=== PATIENT | female | born 1995 | race Caucasian/White ===

== ENCOUNTER 2017-05-26 22:54 | Emergency (ER) | payer OTHER ==
[2017-05-26 23:06] VITALS: BP 126/90; O2SAT 99; BMI 21.1
--- NOTE | 2017-05-26 23:32 | ED PDOC ---
Arrival/HPI - General Chief Complaint: Dizziness/Lightheaded Time Seen by Provider: 05/26/17 23:16 Historian: Patient - History of Present Illness Narrative History of Present Illness (Text): 05/26/17 23:28 Donya Almaguer is a 21 year old female, whose past medical history includes migraines and asthma, who presents to the Emergency department complaining of dizziness and light-headedness since this afternoon. Patient describes dizziness as room-spinning and denies any loss of consciousness. Patient also reports a headache, which she states is consistent with previous migraines. Patient denies any fever, chills, chest pain, shortness of breath, nausea, vomiting, diarrhea, urinary symptoms, back pain, neck pain, or any other complaints. Time/Duration: Other (today) Symptom Onset: Gradual Symptom Course: Unchanged Activities at Onset: Rest, Light Context: Home Past Medical History - Provider Review Nursing Documentation Reviewed: Yes - Cardiac Hx Cardiac Disorders: No - Pulmonary Hx Asthma: Yes - Neurological Hx Vertigo: Yes - HEENT Hx HEENT Disorder: No - Renal Hx Renal Disorder: No - Endocrine/Metabolic Hx Endocrine Disorders: No - Hematological/Oncological Hx Blood Disorders: No - Integumentary Hx Dermatological Disorder: No - Musculoskeletal/Rheumatological Hx Musculoskeletal Disorders: No - Gastrointestinal Hx Gastrointestinal Disorders: No - Genitourinary/Gynecological Hx Genitourinary Disorders: No - Psychiatric Hx Psychophysiologic Disorder: No Hx Substance Use: No - Surgical History Hx Section: Yes Family/Social History - Physician Review Nursing Documentation Reviewed: Yes Family/Social History: Unknown Family HX Smoking Status: Never Smoked Hx Alcohol Use: Yes Hx Substance Use: No Allergies/Home Meds Allergies/Adverse Reactions: Allergies No Known Allergies Allergy (Verified 11/02/16 16:02) Home Medications: Home Meds Medication Instructions Recorded Confirmed Albuterol 0.083% [Albuterol 0.083% 1 vial IH PRN PRN 11/02/16 11/02/16 Inhal Katia (2.5 mg/3 ml) UD] Review of Systems - Physician Review All systems were reviewed & negative as marked: Yes - Review of Systems Constitutional: Normal. absent: Fevers Eyes: Normal ENT: Normal Respiratory: Normal. absent: SOB, Cough Cardiovascular: Normal. absent: Chest Pain, Syncope Gastrointestinal: Normal. absent: Abdominal Pain, Diarrhea, Nausea, Vomiting Genitourinary Female: Normal. absent: Dysuria, Frequency, Hematuria, Urine Output Changes Musculoskeletal: Normal. absent: Back Pain, Neck Pain Skin: Normal. absent: Rash Neurological: Headache, Dizziness, Other (+light-headedness) Endocrine: Normal Hemo/Lymphatic: Normal Psychiatric: Normal Physical Exam Vital Signs Reviewed: Yes Vital Signs Temp Pulse Resp BP Pulse Ox 05/27/17 02:26 18 99 05/27/17 01:51 98.0 F 81 18 99 05/26/17 23:04 98.3 F 85 16 126/90 99 Temperature: Afebrile Blood Pressure: Normal Pulse: Regular Respiratory Rate: Normal Appearance: Positive for: Well-Appearing, Non-Toxic, Comfortable Pain Distress: None Mental Status: Positive for: Alert and Oriented X 3 - Systems Exam Head: Present: Atraumatic, Normocephalic Pupils: Present: PERRL Extroacular Muscles: Present: EOMI Conjunctiva: Present: Normal Ears: Present: Normal, NORMAL TM, Normal Canal. No: Erythema, TM Bulging, Fluid , TM Perf Mouth: Present: Moist Mucous Membranes Pharnyx: Present: Normal. No: ERYTHEMA, EXUDATE, TONSILS ENLARGED, Peritonsilar Swelling, Uvular Deviation, Muffled/Hoarse Voice, Strider, Soft Palate/Uvular Edema Nose (External): Present: Atraumatic Nose (Internal): Present: Normal Inspection Neck: Present: Normal Range of Motion Respiratory/Chest: Present: Clear to Auscultation, Good Air Exchange. No: Respiratory Distress, Accessory Muscle Use Cardiovascular: Present: Regular Rate and Rhythm, Normal S1, S2. No: Murmurs Abdomen: Present: Normal Bowel Sounds. No: Tenderness, Distention, Peritoneal Signs Back: Present: Normal Inspection Upper Extremity: Present: Normal Inspection. No: Cyanosis, Edema Lower Extremity: Present: Normal Inspection. No: Edema Neurological: Present: GCS=15, CN II-XII Intact, Speech Normal Skin: Present: Warm, Dry, Normal Color. No: Rashes Psychiatric: Present: Alert, Oriented x 3, Normal Insight, Normal Concentration Medical Decision Making ED Course and Treatment: 05/26/17 23:28 Impression: 21 year old female complaining of dizziness, light-headedness, and headache. Differential Diagnosis include but are not limited to: migraine vs. vertigo Plan: -- CT Head w/o contrast -- EKG -- Labs, troponin -- IV fluids -- Reassess and disposition Prior Visits: Notes and results from previous visits were reviewed. On 11/02/2016, pt was seen in the Emergency department for shortness of breath. Pt was d/c home. Progress Notes: Reviewed EKG, NSR at [address]-segment elevations or depressions, no T-wave inversions, normal intervals. 05/27/17 02:05 Reviewed radiology, CT Head shows: No acute findings. 05/27/17 02:08 On re-evaluation, the patient feels better and is in no acute distress. I have discussed the results and plan with the patient, who expresses understanding. Patient in agreement with plan to discharged home. Patient is stable for discharge. Patient was instructed to follow up with physician/clinic in 1-2 days or return if symptoms worsen or new concerning symptoms arise. Re-evaluation Time: 02:08 Reassessment Condition: Re-examined, Improved - Lab Interpretations Lab Results: 05/27/17 00:03 05/27/17 01:09 Lab Results 05/27/17 01:09: Sodium 140, Potassium 3.5 L, Chloride 103, Carbon Dioxide 27, Anion Gap 14, BUN 7, Creatinine 0.9, Est GFR ( Amer) > 60, Est GFR (Non- Af Amer) > 60, Random Glucose 133 H, Calcium 9.1, Total Bilirubin 0.4, AST 48 H , ALT 33, Alkaline Phosphatase 70, Troponin I < 0.01, Total Protein 7.7, Albumin 4.1, Globulin 3.6, Albumin/Globulin Ratio 1.1 05/27/17 00:03: WBC 7.0, RBC 4.28, Hgb 12.7, Hct 38.1, MCV 89.0, MCH 29.7, MCHC 33.3, RDW 12.6, Plt Count 338, MPV 9.4, Gran % 57.0, Lymph % (Auto) 32.8, [place] % (Auto) 7.7 H, Eos % (Auto) 2.4, Baso % (Auto) 0.1, Gran # 4.00, Lymph # 2.3, [place] # 0.5, Eos # 0.2, Baso # 0.01 I have reviewed the lab results: Yes - RAD Interpretation Narrative RAD Interpretations (Text): CT Head shows: Brain: No significant white matter disease. No hemorrhage. No edema. Ventricles: Unremarkable. No ventriculomegaly. Bones/joints: Unremarkable. No acute fracture. Soft tissues: Unremarkable. Sinuses: Unremarkable as visualized. No acute sinusitis. Mastoid air cells: Unremarkable as visualized. No mastoid effusion. IMPRESSION: No acute findings. Radiology Orders: 05/27/17 00:19 HEAD W/O CONTRAST [CT] Stat Extrusion Press Operator: Radiologist - EKG Interpretation Interpreted by ED Physician: Yes Type: 12 lead EKG - Medication Orders Current Medication Orders: Discontinued Medications Sodium Chloride (Sodium Chloride 0.9%) 1,000 mls @ 80 mls/hr IV .[id number] Last Admin: 05/27/17 00:24 Dose: 80 mls/hr Meclizine HCl (Antivert) 25 mg PO STAT STA Stop: 05/27/17 00:19 Last Admin: 05/27/17 01:50 Dose: 25 mg - Scribe Statement The provider has reviewed the documentation as recorded by the Bhupinderibojhanna Parham All medical record entries made by the Bhupinderibjohanna were at my direction and personally dictated by me. I have reviewed the chart and agree that the record accurately reflects my personal performance of the history, physical exam, medical decision making, and the department course for this patient. I have also personally directed, reviewed, and agree with the discharge instructions and disposition. Disposition/Present on Arrival - Present on Arrival Any Indicators Present on Arrival: No History of DVT/PE: No History of Uncontrolled Diabetes: No Urinary Catheter: No History of Decub. Ulcer: No History Surgical Site Infection Following: None - Disposition Have Diagnosis and Disposition been Completed?: Yes Diagnosis: Vertigo, labyrinthine Disposition: HOME/ ROUTINE Disposition Time: 02:09 Condition: GOOD Discharge Instructions (ExitCare): Vertigo (ED) Prescriptions: Meclizine [Antivert] 25 mg PO TID #21 tab
[2017-05-26] MEDS ORDERED: Sodium Chloride 0.9% 1,000 ML IV SCH (23:45)
[2017-05-27 00:17] LABS: BASO # 0.01 K/mm3 (0.0-2.0); BASO % 0.1 % (0.0-3.0); EOS # 0.2 (0.0-0.7); EOS % 2.4 % (1.5-5.0); HEMOGLOBIN 12.7 gm/dL (12.0-16.0); LYMPH # 2.3 (1.2-3.4); LYMPH % 32.8 % (22.0-35.0); MEAN CORPUSCULAR HEMOGLOBIN 29.7 pg (25.0-35.0); MEAN CORPUSCULAR HGB CONC 33.3 g/dl (31.0-37.0); MEAN PLATELET VOLUME 9.4 fl (7.0-11.0); MONO # 0.5 (0.1-0.6); MONO % 7.7 % (1.0-6.0); PLATELET COUNT 338 10^3/uL (120.0-450.0); RBC 4.28 10^6/uL (3.5-6.1); RED CELL DISTRIBUTION WIDTH 12.6 % (11.5-14.5)
[2017-05-27 01:28] LABS: ALB/GLOB RATIO 1.1 (1.1-1.8); ALBUMIN 4.1 g/dL (3.0-4.8); ALT/SGPT 33 U/L (7-56); AST/SGOT 48 U/L (15-39); BLOOD UREA NITROGEN 7 mg/dL (7-21); CALCIUM 9.1 mg/dL (8.4-10.5); GFR AFRICAN-AMERICAN > 60; GFR NON-AFRICAN AMERICAN > 60
[2017-05-27 01:40] LABS: TROPONIN I < 0.01 ng/mL
[2017-05-27 01:52] VITALS: PULSE 81; RESP 18; TEMP 98
--- NOTE | 2017-05-27 07:44 | CT ---
PROCEDURE: CT HEAD WITHOUT CONTRAST. HISTORY: dizzy COMPARISON: None available. TECHNIQUE: Axial computed tomography images were obtained through the head/brain without intravenous contrast. Radiation dose: Total exam DLP = 629.06 mGy-cm. This CT exam was performed using one or more of the following dose reduction techniques: Automated exposure control, adjustment of the mA and/or kV according to patient size, and/or use of iterative reconstruction technique. FINDINGS: HEMORRHAGE: No intracranial hemorrhage. BRAIN: No mass effect or edema. No atrophy or chronic microvascular ischemic changes. VENTRICLES: Unremarkable. No hydrocephalus. CALVARIUM: Unremarkable. PARANASAL SINUSES: Unremarkable as visualized. No significant inflammatory changes. MASTOID AIR CELLS: Unremarkable as visualized. No inflammatory changes. OTHER FINDINGS: None. IMPRESSION: No intracranial mass, hemorrhage or evidence of acute infarct. Unremarkable examination. Preliminary interpretation of this examination was reported by [facility] at 2:03 a.m. on 05/27/2017. There is concurrence of this report with the preliminary interpretation.
--- NOTE | 2017-05-28 10:00 | CARD ---
APPROVED REPORT EKG Measurement Heart [id number] <Conclusion> RSR Normal ECG No change
== END 2017-05-27 02:28 | disposition home or self-care (01) ==
LOC: ED 22:54
DX: R42 Dizziness and giddiness (principal); H83.09 Labyrinthitis, unspecified ear
CPT/HCPCS: 70450; 80053; 84484; 85025; 93005; 99285; J7040